=== PATIENT | female | born 1945 | race Caucasian/White ===

== ENCOUNTER 2023-11-26 08:42 | Inpatient (IN) ==
[2023-11-26] MEDS ORDERED: IOPAMIDOL 100 ML BOTTLE IV ONE (08:43)
[2023-11-26 10:30] LABS: Basophils # (Auto) 0.02 K/mcL (0.00-0.30); Basophils % (Auto) 0.1 % (0.0-2.0); Eosinophils # (Auto) 0.03 K/mcL (0.00-0.70); Eosinophils % (Auto) 0.2 % (0.0-7.0); Hematocrit 42.9 % (34.1-44.9); Hemoglobin 14.7 g/dL (11.2-15.7); Lymphocytes # (Auto) 1.42 K/mcL (1.50-4.80); Lymphocytes % (Auto) 7.5 % (15.5-49.0); Mean Cell Volume 92.1 fL (80.0-100.0); Mean Corpuscular HGB Conc 34.3 g/dL (31.0-36.0); Mean Platelet Volume 10.7 fL (8.8-12.5); Monocytes # (Auto) 1.15 K/mcL (0.10-0.90); Monocytes % (Auto) 6.1 % (1.0-12.0); Neutrophils % (Auto) 85.2 % (38.0-78.0); Platelet Count 298 K/mcL (140-440); RBC 4.66 M/mcL (3.59-5.38); Red Cell Distribution Width 15.3 % (11.5-14.5)
[2023-11-26] MEDS: HYDROmorphone 0.5 MG/0.5 ML SYRINGE IV PRN ×2 (10:52→23:28)
[2023-11-26] MEDS: 0.9 % SODIUM CHLORIDE 1,000 ML IV ONE ×2 (11:12→14:20)
[2023-11-26 12:22] LABS: ALT/SGPT 37 U/L (<40); AST/SGOT 44 U/L (<32); Albumin 3.2 gm/dL (3.2-5.2); Albumin/Globulin Ratio 0.7 (1.0-2.3); Alkaline Phosphatase 134 U/L (39-117); Bilirubin,Total 0.8 mg/dL (0.1-1.0); Blood Urea Nitrogen 52 mg/dL (8-23); Calcium 9.9 mg/dL (8.6-10.4); Carbon Dioxide 18 mmol/L (22-30); Chloride 93 mmol/L (96-108); Globulin 4.5 gm/dL (2.2-3.7); Glomerular Filtration Rate 39; Glucose 117 mg/dL (70-105)
[2023-11-26] MEDS: POTASSIUM CHLORIDE 20 MEQ TABLET PO ONE (13:07)
[2023-11-26] MEDS: POTASSIUM CHLORIDE 20 MEQ in DEXTROSE 5% IN WATER 250 ML IV ONE ×2 (13:07→21:12)
[2023-11-26] MEDS: cefTRIAXone 2 GM in DEXTROSE 5% IN WATER 50 ML IV ONE (14:20)
[2023-11-26] MEDS: metroNIDAZOLE 500 MG/100 ML BAG IV ONE (15:18)
[2023-11-26] MEDS ORDERED: IPRATROPIUM/ALBUTEROL 3 ML AMPUL.NEB NEB PRN (17:48)
[2023-11-26] MEDS ORDERED: ACETAMINOPHEN 325 MG TABLET PO PRN (17:48)
[2023-11-26] MEDS ORDERED: LOPERAMIDE 2 MG CAPSULE PO PRN (17:48)
[2023-11-26] MEDS ORDERED: PROCHLORPERAZINE 10 MG/2 ML VIAL IV PRN (17:48)
[2023-11-26 20:04] LABS: Appearance,Urine Clear (Clear); Bilirubin,Urine Negative (Negative); Color,Urine Yellow; Culture Indicated,Urine No; Glucose,Urine (UA) Negative (Negative); Ketones,Urine Trace mg/dL (Negative); Leukocyte Esterase,Urine Small /uL (Negative); Nitrate,Urine Negative (Negative); Protein,Urine 30 mg/dL (Negative); Urine Blood Negative ery/mcL (Negative); Urine Hyaline Cast 4 /lph (0-2); Urine RBC 2 /hpf (0-3); Urine Squamous Epithelial Cell 3 /hpf (0-4); Urine WBC 7 /hpf (0-4); Urobilinogen,Urine Normal
[2023-11-26] MEDS: 0.9 % SODIUM CHLORIDE 1,000 ML IV SCH (20:06)
[2023-11-26] MEDS: LIPASE/PROTEASE/AMYLASE 1 CAP CAPSULE PO SCH (20:06)
[2023-11-26] MEDS: PIPERACILLIN SODIUM/TAZOBACTAM 3.375 GM in 0.9 % SODIUM CHLORIDE 50 ML IV ONE (20:06)
[2023-11-26] MEDS: 0.9 % SODIUM CHLORIDE 10 ML SYRINGE IV SCH (20:07)
[2023-11-26] MEDS: PIPERACILLIN SODIUM/TAZOBACTAM 3.375 GM in 0.9 % SODIUM CHLORIDE 100 ML IV SCH (20:07)
[2023-11-26] MEDS: POTASSIUM CHLORIDE 20 MEQ TABLET PO SCH (21:12)
[2023-11-26] MEDS: HEPARIN 5,000 UNIT/ML VIAL SQ SCH (21:13)
[2023-11-26] MEDS: POTASSIUM CHLORIDE 20 MEQ/10 ML VIAL IV ONE (21:14)
[2023-11-26] MEDS: PIPERACILLIN SODIUM/TAZOBACTAM 3.375 GM in DEXTROSE 5% IN WATER 50 ML IV SCH (23:24)
[2023-11-27] MEDS: oxyCODONE IR 5 MG TABLET PO PRN (05:39)
[2023-11-27 06:32] LABS: Basophils # (Auto) 0.01 K/mcL (0.00-0.30); Basophils % (Auto) 0.1 % (0.0-2.0); Eosinophils # (Auto) 0.02 K/mcL (0.00-0.70); Eosinophils % (Auto) 0.1 % (0.0-7.0); Lymphocytes # (Auto) 1.12 K/mcL (1.50-4.80); Lymphocytes % (Auto) 6.2 % (15.5-49.0); Mean Cell Volume 95.8 fL (80.0-100.0); Mean Corpuscular HGB Conc 33.3 g/dL (31.0-36.0); Mean Platelet Volume 9.6 fL (8.8-12.5); Monocytes # (Auto) 1.02 K/mcL (0.10-0.90); Monocytes % (Auto) 5.7 % (1.0-12.0); Neutrophils % (Auto) 86.8 % (38.0-78.0); Platelet Count 246 K/mcL (140-440); RBC 4.07 M/mcL (3.59-5.38); Red Cell Distribution Width 15.6 % (11.5-14.5)
[2023-11-27] MEDS: PANTOPRAZOLE 40 MG TABLET PO SCH (07:49)
[2023-11-27] MEDS: MULTIVIT,THER IRON,CA,FA & MIN 1 TABLET PO SCH (10:45)
[2023-11-27] MEDS: ONDANSETRON 4 MG/2 ML VIAL IV PRN (11:53)
[2023-11-27 12:41] LABS: ALT/SGPT 36 U/L (<40); AST/SGOT 44 U/L (<32); Albumin 2.8 gm/dL (3.2-5.2); Albumin/Globulin Ratio 0.7 (1.0-2.3); Alkaline Phosphatase 119 U/L (39-117); Bilirubin,Total 0.8 mg/dL (0.1-1.0); Blood Urea Nitrogen 35 mg/dL (8-23); Carbon Dioxide 16 mmol/L (22-30); Chloride 105 mmol/L (96-108); Glomerular Filtration Rate 53; Glucose 109 mg/dL (70-105)
[2023-11-27] MEDS: LACTULOSE 20 GM/30 ML ORAL.SOL PO SCH ×2 (15:40→20:23)
[2023-11-28] MEDS: LACTULOSE 20 GM/30 ML ORAL.SOL PO ONE (00:17)
[2023-11-28 06:44] LABS: Basophils # (Auto) 0 K/mcL (0.00-0.30); Basophils % (Auto) 0 % (0.0-2.0); Eosinophils # (Auto) 0 K/mcL (0.00-0.70); Eosinophils % (Auto) 0 % (0.0-7.0); Hematocrit 40.8 % (34.1-44.9); Hemoglobin 12.8 g/dL (11.2-15.7); Lymphocytes # (Auto) 0.29 K/mcL (1.50-4.80); Lymphocytes % (Auto) 1.5 % (15.5-49.0); Mean Cell Volume 102.3 fL (80.0-100.0); Mean Corpuscular HGB Conc 31.4 g/dL (31.0-36.0); Mean Platelet Volume 9.7 fL (8.8-12.5); Monocytes # (Auto) 0.34 K/mcL (0.10-0.90); Monocytes % (Auto) 1.8 % (1.0-12.0); Neutrophils % (Auto) 95.5 % (38.0-78.0); Platelet Count 175 K/mcL (140-440); RBC 3.99 M/mcL (3.59-5.38); Red Cell Distribution Width 16.3 % (11.5-14.5); WBC 18.8 K/mcL (4.5-11.0)
[2023-11-28 06:53] LABS: ALT/SGPT 36 U/L (<40); AST/SGOT 37 U/L (<32); Albumin 2.8 gm/dL (3.2-5.2); Albumin/Globulin Ratio 0.7 (1.0-2.3); Alkaline Phosphatase 143 U/L (39-117); Bilirubin,Total 0.9 mg/dL (0.1-1.0); Blood Urea Nitrogen 29 mg/dL (8-23); Calcium 9.3 mg/dL (8.6-10.4); Carbon Dioxide 14 mmol/L (22-30); Chloride 111 mmol/L (96-108); Globulin 3.8 gm/dL (2.2-3.7); Glomerular Filtration Rate 53; Glucose 118 mg/dL (70-105)
[2023-11-29 06:25] LABS: Basophils # (Auto) 0 K/mcL (0.00-0.30); Basophils % (Auto) 0 % (0.0-2.0); Eosinophils # (Auto) 0.02 K/mcL (0.00-0.70); Eosinophils % (Auto) 0.2 % (0.0-7.0); Hematocrit 37.5 % (34.1-44.9); Hemoglobin 12.4 g/dL (11.2-15.7); Lymphocytes % (Auto) 7.7 % (15.5-49.0); Mean Cell Volume 96.6 fL (80.0-100.0); Mean Corpuscular HGB Conc 33.1 g/dL (31.0-36.0); Mean Platelet Volume 9.9 fL (8.8-12.5); Monocytes # (Auto) 1.24 K/mcL (0.10-0.90); Neutrophils % (Auto) 78.3 % (38.0-78.0); Platelet Count 167 K/mcL (140-440); RBC 3.88 M/mcL (3.59-5.38); Red Cell Distribution Width 16.2 % (11.5-14.5); WBC 10.3 K/mcL (4.5-11.0)
[2023-11-29 06:45] LABS: ALT/SGPT 34 U/L (<40); AST/SGOT 35 U/L (<32); Albumin 2.6 gm/dL (3.2-5.2); Albumin/Globulin Ratio 0.7 (1.0-2.3); Alkaline Phosphatase 112 U/L (39-117); Bilirubin,Total 0.8 mg/dL (0.1-1.0); Blood Urea Nitrogen 23 mg/dL (8-23); Calcium 9.4 mg/dL (8.6-10.4); Carbon Dioxide 16 mmol/L (22-30); Chloride 116 mmol/L (96-108); Globulin 3.6 gm/dL (2.2-3.7); Glomerular Filtration Rate 82; Glucose 103 mg/dL (70-105)
[2023-11-29] MEDS: ENOXAPARIN 40 MG/0.4 ML SYRINGE SQ SCH (08:39)
== END 2023-11-29 11:38 | DRG 391 ==
LOC: ED 08:42 → MEDSUR 17:42
PROVIDERS: ADMIT Internal Medicine; ATTEND Internal Medicine